=== PATIENT | female | born 1980 | race Caucasian/White ===

== ENCOUNTER 2024-11-24 17:46 | Emergency (ER) | payer BC, SELFPAY ==
--- OUTSIDE RECORDS SUMMARY | 2024-11-24 17:49 | XMS_ITS | Clinical Summary ---
Author Organization [facility] Address [address] [place] [id number] Care Team Providers Care Radio Engineer Name Role Phone Bárbara Amor MD Primary Care Prov ider Allergies No known active allergies Medications buPROPion 150 mg Extended-Release tabletIndications :Depression, major, in remission Take 1 Tablet (150 mg) by mouth once daily in the morning. Take with 300mg tablet for total of 450mg daily. 90 Tablet 3 5 Active buPROPion 300 mg Extended-Release tabletIndications :Depression, major, in remission Take 1 Tablet (300 mg) by mouth once daily. Take with 150mg tablet for total of 450mg daily. 90 Tablet 3 5 Active norethindrone-eth inyl estradiol 1-20 mg-mcg tabletIndications :Uses oral contraception Take 1 Tablet by mouth once daily. 84 Tablet 3 5 Active sertraline 100 mg tabletIndications :Depression, major, in remission,Anxiety Take 2 Tablets (200 mg) by mouth once daily. 180 Tablet 3 5 Active dextroamphetamine -amphetamine (Adderall XR) 30 mg Extended-Release capsuleIndication s:Attention deficit hyperactivity disorder (ADHD), predominantly inattentive type Take 1 Capsule (30 mg) by mouth once daily. 30 Capsule 5 Active dextroamphetamine -amphetamine (Adderall XR) 30 mg Extended-Release capsuleIndication s:Attention deficit hyperactivity disorder (ADHD), predominantly inattentive type Take 1 Capsule (30 mg) by mouth once daily. 30 Capsule 5 Active dextroamphetamine -amphetamine (Adderall XR) 30 mg Extended-Release capsuleIndication s:Attention deficit hyperactivity disorder (ADHD), predominantly inattentive type Take 1 Capsule (30 mg) by mouth once daily. 30 Capsule 5 10/30/19 25 dextroamphetamine -amphetamine (Adderall XR) 30 mg Extended-Release capsuleIndication s:Attention deficit hyperactivity disorder (ADHD), predominantly inattentive type Take 1 Capsule (30 mg) by mouth once daily. 30 Capsule 5 11/09/19 25 Discontinu ed(Reorder (E-cancel not sent)) Active Problems Problem Noted Date Diagnosed Date Pap smear for cervical cancer screening 05/27/19 24 Overview (05/27/2023): 05/2023 NIL/HPV Negative Plan: Pap and HPV due 05/2028 Anxiety 04/18/2023 Depression, major, in remission 04/18/2023 Encounters Date Type Department Care Team Description 11/08/2024 Refill [facility] [address] [place] [address] Bárbara Amor MD Refill Request 11/08/2024 Telephone [facility] [address] [place] [address] Bárbara Amor MD Error-please disregard 11/05/2024 Telephone [facility] [address] [place] [address] Bárbara Amor MD Refill Request (dextroamphetamine-a mphetamine (Adderall XR) 30 mg Extended-Release capsule) 09/29/2024 1:50 PM CDT Office Visit [facility] [address] [place] [address] Bárbara Amor MD Medication Management (Would like to increase dose) 09/29/2024 Travel from Last 3 Months Immunizations Immunization Administration Dates Next Due COVID-19 VACCINE SPIKEVAX (M ODERNA 50MCG/0.5ML) 12YO+ PFS 08/20/2024,04/18/2023 Influenza Virus, Unspecified 03/23/2018 Influenza, IIV4 04/18/2023,,02/21/2020,2018 MMR 08/15/2018 Tdap 06/16/2018 Family History Medical History Relation Name Comments Hyperlipidemia Brother 1 eye disease Brother 2 eye disease Brother 3 Hyperlipidemia Father Hypertension Father Stroke Maternal Grandfather Lymphoma Maternal Grandmother non-hod gkins Thyroid Disease Mother Cancer-breast Paternal Aunt Heart Disease Paternal Grandfather cabg Cancer-colon No Family History Cancer-ovarian No Family History Relation Name Status Comments Brother 1 Alive Brother 2 Alive Brother 3 Alive Father Alive Maternal Grandfather Maternal Grandmother Mother Alive Paternal Aunt Paternal Grandfather Paternal Grandmother Social History Tobacco Use Types Packs/Day Years Used Date Smoking Tobacco: Never Smokeless Tobacco: Never Tobacco Cessation:Counseling Given: Not Answered Alcohol Use Standard Drinks/Week Comments Yes 1 (1 standard drink = 0.6 oz pur e alcohol) PHQ-2 Answer Date Recorded PHQ-2 TOTAL SCORE 2 08/20/2024 Social Connections Answer Date Recorded Do you often feel lonely or isolated from those around you? 0 08/20/2024 Financial Resource Strain Answer Date R ecorded Difficulty of Paying Living Expenses 3 08/20/2024 Difficulty of Paying Living Expenses Not on file 08/20/2024 Food Insecurity Answer Date Recorded Do you worry your food will run out before you are able to buy more? 1 08/20/2024 Transportation Needs Answer Date Record ed Does lack of transportation keep you from medica l appointments? 1 08/20/2024 Does lack of transportation keep you from work, meetings or getting things that you need? 1 08/20/2024 Housing Stability Answer Date Recorded What is your housing situation today? 1 08/20/2024 Utilities Answer Date Recorded Do you have trouble paying f or utilities (for example, heat, electricity, water, phone)? 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 Gender Identity Not on file Sexual Orientation Not on file Obstetrics History Para Term AB IAB SAB Ectopic Multiple Livin g Live Births 2 2 1 1 Date Outcome GA Total Labor Labor/2nd/3rd Weight Sex Type Anes PTL Evangelina A1 A5 Name Clin Term Last Filed Vital Signs Vital Sign Reading Time Taken Comments Blood Pressure 138/80 09/29/2024 1:50 PM CDT Pulse 82 09/29/2024 1:50 PM CDT Temperature - - Respiratory Rate - - Oxygen Saturation 98% 09/29/2024 1:50 PM CDT Inhaled Oxygen Concentration - - Weight 93 kg (205 lb) 08/20/2024 10:19 AM CDT Height 164 cm (5' 4.57) 08/20/2024 10:19 AM CDT Body Mass Index 34.57 08/20/2024 10:19 AM CDT Plan of Treatment Health Maintenance Due Date Last Done Comments HIV for age 15-65 1996 Hepatitis C screening for age 18-79 11/30/1999 Hepatitis B series for 19+ (1 of 3 - 19+ 3-dose series) 2000 Influenza Vaccine (#1) 2024 , 02/16/2021, 02/21/2020, Additional history exists BMI (ht and wt on same day) for age 18+ 08/20/2025 08/20/2024, 05/19/2023, 04/18/2023 Depression screening for age 12+ 08/20/2025 08/20/2024, 04/18/2023 Pap test for age 21-65 05/19/2028 05/19/2023, 2023 Tetanus booster 06/16/2028 06/16/2018 COVID-19 vaccine series Completed 08/21/19, 04/18/2023, 03/09/2021, Additional history exists Pneumococcal series for age 6-49 Aged Out No longer eligible based on patient's age to complete this topic Procedures Procedure Name Priority Date/Time Associated Diagnosis Comments HPV HIGH RISK Routine 05/19/2023 12:29 PM ENGINEERING OPERATIONS LEADER Screening for cervical cancer from Last 3 Months or Most Recently Relevant to Health Maintenance Results * HPV HIGH RISK (05/19/2023 12:29 PM ENGINEERING OPERATIONS LEADER) TYPE 16 Negative Negative 05/21/2023 5:14 PM ENGINEERING OPERATIONS LEADER [facility] TYPE 18 Negative Negative 05/21/2023 5:14 PM ENGINEERING OPERATIONS LEADER [facility] OTHER HIGH RISK TYPES Negative Negative 05/21/2023 5:14 PM ENGINEERING OPERATIONS LEADER [facility] Other (Cervical) Non-Blood / Unknown 05/19/2023 12:29 PM ENGINEERING OPERATIONS LEADER 05/20/2023 9:29 AM ENGINEERING OPERATIONS LEADER Narrative [facility] - 05/21/2023 5:14 PM ENGINEERING OPERATIONS LEADER HPV types 16, 18, 31, 33, 35, 39, 45, 51, 52, 56, 58, 59, 66 and 68 DNA were undetectable or below the pre-set threshold. Methodology: Kassy Catrach[address] 4800 HPV Test Bárbara Amor MD MICROBIOLOGY Fi nal Result [facility] [address] [place] [id number], from Last 3 Months or Most Recently Relevant to Health Maintenance Insurance [facility] Care Teams Radio Engineer Relationship Specialty Start Date End Date Bárbara Amor MD [address] [place] [address] PCP - General Family Practice 04/18/23
[2024-11-24 18:18] VITALS: BP 120/84; PULSE 101; RESP 16; TEMP 36.5; O2SAT 97; BMI 34.3
--- NOTE | 2024-11-24 18:26 | ED.GENADULT ---
HPI - General Adult General Date Seen: 11/24/24 Chief complaint: Skin/Abscess/Foreign Body Stated complaint: L middle finger has plastic , sent by urgent care Time Seen by Provider: 11/24/24 17:51 History of Present Illness HPI narrative: 43-year-old female presenting to the ER today with concern for a plastic foreign body in her left middle finger. She was putting up a number relative today and the stem was broken and splinters went into her left middle finger. X-rays under care were negative for any radiopaque foreign body. Patient reports that she suffered the puncture wound with a foreign body 2-to couple of hours prior to presentation this evening when she was opening up a umbrella. The fiberglass pieces on them send the [place] broke and poked into her dorsum of her left hand middle finger. She suffered a puncture from the radial side of the dorsum of the proximal phalanges of the middle finger almost puncturing up through the ulnar side of the dorsum of that middle finger. Although the urgent care was able to remove some of the foreign body she still has a sensation of a foreign body in particular on the ulnar side of finger. Related Data Home Medications ?Medication ?Instructions ?Recorded ?Confirmed bupropion HCl 150 mg 24 hr tablet, 150 mg PO DAILY 11/24/24 11/24/24 extended release dextroamphetamine-amphetamine ER 1 cap PO DAILY 11/24/24 11/24/24 30 mg 24hr capsule,extend release norethindrone acetate 1 mg-ethinyl 1 tab PO DAILY 11/24/24 11/24/24 estradiol 20 mcg tablet sertraline 100 mg tablet 100 mg PO BID 11/24/24 11/24/24 Allergies Allergy/AdvReac Type Severity Reaction Status Date / Time No Known Drug Allergies Allergy Verified 11/24/24 18:23 [facility] Social History Smoking Status: Never smoker How often do you have a drink containing alcohol: monthly or less AUDIT-C Alcohol total score: 1 Non-prescribed substance use: denies use Exam Narrative: Exam Narrative: Constitutional: Appears well-developed and well-nourished. Active. Non-toxic appearing. HENT: Head: Atraumatic. No signs of injury. Nose: No nasal discharge. Mouth/Throat: Mucous membranes are moist. Pharynx is normal. Tonsils symmetric. Uvula midline. Airway patent. Eyes: Conjunctivae normal and EOM are normal. Pupils are equal, round, and reactive to light. Right eye exhibits no discharge. Left eye exhibits no discharge. No icterus. Neck: Normal range of motion. Neck supple. No adenopathy. No stridor. Cardiovascular: Normal rate and regular rhythm. . Brisk capillary refill. No active bleeding. Pulmonary/Chest: Effort normal. No stridor. No respiratory distress. Musculoskeletal: Normal except for her left hand middle finger. Normal range of motion. No edema. No tenderness. No deformity. Left middle finger. There is a puncture wound on the dorsum of the proximal phalanges on the radial side of the finger with a small pink marked on the skin on the ulnar side of the dorsum of the middle phalanges. She reports that the foreign body poked from the radial side and almost came out on the ulnar side. Patient says she has a sensation of a foreign body but I am not able to palpate 1 on my exam. She has intact flexion extension of the MCP, PIP, DI P. She has intact radial and ulnar digital nerve function. No active bleeding. There is roughly a 2 x 2 cm puncture wound on the radial side. Neurological: Alert. Normal strength. No cranial nerve deficit or sensory deficit. Coordination normal. GCS eye subscore is 4. GCS verbal subscore is 5. GCS motor subscore is 6. Skin: Skin is warm. No rash noted. Const: Vital Signs, click to edit/add: Vital Signs - 24 hr 11/24/24 18:18 11/24/24 19:29 Temperature 97.7 F 98.7 F Pulse Rate [Pulse Oximeter] 101 H 78 Respiratory Rate 16 18 Blood Pressure [Ri ght Upper Arm] 120/84 101/76 Pulse Oximetry 97 95 Oxygen Delivery Me thod Room Air Room Air Course Vital Signs Vital signs: Initial Vital Signs Temperature 97.7 F 11/24/24 18:18 Temperature Source Temporal Artery Scan 11/24/24 18:18 Pulse Rate 101 H 11/24/24 18:18 Respiratory Rate 16 11/24/24 18:18 Blood Pressure 120/84 11/24/24 18:18 Blood Pressure Mean 96 11/24/24 18:18 Blood Pressure Position Sitting 11/24/24 18:18 Pulse Oximetry 97 11/24/24 18:18 Oxygen Delivery Method Room Air 11/24/24 18:18 Vital Signs Temperature 97.7 F 11/24/24 18:18 Pulse Rate 101 H 11/24/24 18:18 Respiratory Rate 16 11/24/24 18:18 Blood Pressure 120/84 11/24/24 18:18 Pulse Oximetry 97 11/24/24 18:18 Oxygen Delivery Method Room Air 11/24/24 18:18 Temperature 98.7 F 11/24/24 19:29 Pulse Rate 78 11/24/24 19:29 Respiratory Rate 18 11/24/24 19:29 Blood Pressure 101/76 11/24/24 19:29 Pulse Oximetry 95 11/24/24 19:29 Oxygen Delivery Method Room Air 11/24/24 19:29 Medical Decision Making MDM Narrative Medical decision making narrative: Very pleasant 43-year-old female who is generally healthy and up-to-date on her tetanus presenting to the ER today with a puncture wound to the dorsum of her left middle finger. Injury occurred this evening when bits of a fiberglass part of an umbrella poked into her finger. She had most of the foreign body removed in urgent care but there is still concern for a residual foreign body sensation. Discussed options with the patient including leading the foreign body be and putting her on prophylactic antibiotics in hopes that the foreign body would ?work its way out?. We also discussed the attempted removal here in the ER with or without ultrasound. Patient would like to have a foreign body removed if we believe it is present. She would like start with ultrasound. We did do a limited bedside ultrasound that finger which is not definitive but does suggest that there is a dark area on the ulnar side of the dorsum of her proximal phalanges. Patient would like to go ahead with tried to remove it. Digital block was performed. Sterile prep and sterile technique used. I placed a tourniquet got onto the finger to maintain a bloodless field. Using micro Adson forceps I was able to palpate through the open wound on the radial side of the dorsum of the finger and did encounter a small foreign material. It was about 1 mm in size and I was able to remove it, with difficulty. I did make a small incision at the pink dot on the ulnar side of the patient's dorsum of her proximal flange E roughly 2 mm. Using the micro Adson forceps I was palpating the wound from that side and did not encounter any further foreign body. Discussed the patient that it was able to remove a very small foreign body here. However it is still possible there may be more foreign bodies present. It looks like this piece of fiberglass is sort of broken into many small pieces. At this point we feel that the potential harm that might be caused by further incision and exploration may not be worth the benefit. Patient agrees. Will start the patient on prophylactic antibiotics. Discussed that if she has any signs of evolving infection or symptoms of residual foreign body, she should follow-up with orthopedic clinic (or recurrent to the ER if significantly worse). Perhaps would need exploration in the OR for definitive foreign body removal. Patient agreeable to this plan of care. Discharge Plan Discharge Clinical Impression: Foreign body finger Patient Disposition: Home, Self-Care Condition: Stable Instructions: Soft Tissue Foreign Body (ED) Additional Instructions: As we discussed, we were able to remove 1 small piece of foreign material from your finger. In case there is more foreign objects in her, we are going to start you on antibiotics. Take the cephalexin 3 times daily for the next 7 days. Monitor your finger carefully. Keep the wounds covered with a Band-Aid and antibiotic ointment. You can clean the finger gently once per day with warm water. If he develops signs of infection such as redness, swelling, pus, increasing pain of your finger, please return to the ER or see the orthopedic clinic. To schedule an appointment with the [facility] [facility] you can call [phone]. Prescriptions: No Action sertraline 100 mg tablet 100 mg PO BID norethindrone ac-eth estradiol 1-20 mg-mcg tablet 1 tab PO DAILY dextroamphetamine-amphetamine 30 mg capsule,extended release 24hr 1 cap PO DAILY bupropion HCl 150 mg tablet extended release 24 hr 150 mg PO DAILY Follow Up/Referrals: Provider,Not a Local [Primary Care Provider, Family Practice] Stand Alone Forms: MyHealth Info Instructions Procedures POC Ultrasound Skin/Soft Tissue Anatomical areas examined: Other (Left middle finger) Indications: reported foreign body Exam type: limited soft tissue ultrasound Findings: foreign body (There is a small dark but non echogenic abnormality on the ulnar side of the dorsum of the finger. No ultrasonographic shadowing. Not definitive for foreign body but cannot completely rule it out.)
[2024-11-24 19:29] VITALS: BP 101/76; PULSE 78; RESP 18; TEMP 37.1; O2SAT 95
== END 2024-11-24 19:52 | disposition home or self-care (01) ==
LOC: ED 19:51
PROVIDERS: Emergency Provider Emergency Medicine
DX: S61.243A Puncture wound with foreign body of left middle finger without damage to nail, initial encounter (principal); W45.8XXA Other foreign body or object entering through skin, initial encounter
CPT/HCPCS: 10120; 99282